=== PATIENT | female | born 2000 | race Caucasian/White ===

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

== ENCOUNTER 2019-08-03 20:31 | Emergency (ER) | payer OTHER ==
--- NOTE | 2019-08-03 21:50 | ED ---
Upper Extremity Pain - HPI Summary HPI Summary: 18 year old female presents with elbow pain for the past day. 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 Pain is worst when she moves her wrist. she admits to some numbness in her 4 and 5th finger that has resolved. no injury. no fevers. has full ROM. has no medical conditions. - History of Current Complaint Chief Complaint: EDExtremityLower Stated Complaint: ELBOW INJURY PER PT Time Seen by Provider: 08/03/19 21:08 - Allergies/Home Medications Allergies/Adverse Reactions: Allergies Allergy/AdvReac Type Severity Reaction Status Date / Time No Known Allergies Allergy Verified 08/03/19 20:34 PMH/Surg Hx/FS Hx/Imm Hx Endocrine/Hematology History: Denies: Hx Anticoagulant Therapy Cardiovascular History: Denies: Hx Pacemaker/ICD Respiratory History: Denies: Hx Lung Cancer GI History: Denies: Hx Ileostomy History: Denies: Hx Dialysis Sensory History: Denies: Hx Legally Blind, Hx Deafness Opthamlomology History: Denies: Hx Legally Blind Neurological History: Denies: Hx Dementia Psychiatric History: Denies: Hx Autism, Hx Schizophrenia Infectious Disease History: No Infectious Disease History: Denies: Traveled Outside the [place] in Last 30 Days - Family History Known Family History: Positive: Hypertension - Social History Alcohol Use: None Substance Use Type: Reports: None Smoking Status (MU): Never Smoked Tobacco Review of Systems Negative: Fever Negative: Chest Pain Negative: Shortness Of Breath Positive: Myalgia - right arm pain All Other Systems Reviewed And Are Negative: Yes Physical Exam Triage Information Reviewed: Yes Vital Signs On Initial Exam: Initial Vitals Temp Pulse Resp BP Pulse Ox 98.2 F 83 15 121/77 100 08/03/19 20:32 08/03/19 20:32 08/03/19 20:32 08/03/19 20:32 08/03/19 20:32 Vital Signs Reviewed: Yes Appearance: Positive: Well-Appearing Skin: Positive: Warm, Dry Head/Face: Positive: Normal Head/Face Inspection Eyes: Positive: Normal, Conjunctiva Clear ENT: Positive: Pharynx normal Respiratory/Lung Sounds: Positive: Clear to Auscultation, Breath Sounds Present Cardiovascular: Positive: Normal, RRR Musculoskeletal: Positive: Strength/ROM Intact - right arm, Other - tenderness bilateral epicondyle, pain with flexion wrist, sensation grossly intact, good pulses Neurological: Positive: Normal Psychiatric: Positive: Normal Procedures - Sedation Patient Received Moderate/Deep Sedation with Procedure: No Diagnostics - Vital Signs Vital Signs Temp Pulse Resp BP Pulse Ox 08/03/19 20:32 98.2 F 83 15 121/77 100 - Laboratory Lab Statement: Any lab studies that have been ordered have been reviewed, and results considered in the medical decision making process. - Radiology elbow Radiology Interpretation Completed By: ED Physician Summary of Radiographic Findings: no fracture Course/Dx - Course Course Of Treatment: 18 year old female presents with elbow pain for the past day. 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 Pain is worst when she moves her wrist. she admits to some numbness in her 4 and 5th finger that has resolved. no injury. no fevers. has full ROM. has no medical conditions. on exam has tenderness over bilateral epicondyles. Pain increased with wrist flexion. Neurovascular intact. xray shows no fracture. Gave Yassine. Told to ice and take ibuprofen. Told to follow with ortho if no improvement. Patient understands and agrees with plan - Diagnoses Differential Diagnosis/HQI/PQRI: Positive: Fracture (Closed), Strain, Sprain Provider Diagnoses: Right elbow pain Discharge ED - Sign-Out/Discharge Documenting (check all that apply): Patient Departure - Discharge Plan Condition: Good Disposition: HOME Patient Education Materials: Elbow Sprain (ED) Forms: *Work Release Referrals: [facility] [Outside] Carter Cardoso MD [Medical Doctor] - Additional Instructions: Take Tylenol or ibuprofen every 6 hours as needed for pain Apply ice, rest Follow up with ortho if no improvement Return to ED if develop any new or worsening symptoms - Billing Disposition and Condition Condition: GOOD Disposition: Home - Attestation Statements Provider Attestation: I was available for consult. This patient was seen by the MANA. The patient was not presented to, seen by, or examined by me. Ben Millan MD
[2019-08-03 22:08] VITALS: BP 129/64
== END 2019-08-03 22:06 | disposition home or self-care (01) ==
LOC: ED 20:31
DX: M25.521 Pain in right elbow (principal)
CPT/HCPCS: 99282